=== PATIENT | female | born 1985 | race American Indian/Alaskan Native ===

== ENCOUNTER 2017-07-26 07:07 | Emergency (ER) | payer BC ==
[2017-07-26] MEDS ORDERED: ZOFRAN ODT PO ONE (07:58)
[2017-07-26] MEDS ORDERED: PERCOCET 5/325 PO ONE (07:58)
--- NOTE | 2017-07-26 08:40 | XRay Report ---
FINAL REPORT EXAM: XR KNEE 4+V RT HISTORY: severe knee pain, swelling, do sunrise view please COMPARISONS: None. FINDINGS: AP, lateral, sunrise and oblique views of the both knees Alignment is anatomic, joint spaces are preserved, and subchondral surfaces are smooth. No fracture or joint effusion seen involving either knee. IMPRESSION: No acute finding in either knee. Consider additional imaging for worsening/persistent symptoms.
[2017-07-26 08:48] LABS: Basophils % (Auto) 0.6 % (0.0-1.8); Eosinophils % (Auto) 1.2 % (0.0-4.3); Hematocrit 36.2 % (30.3-42.9); Hemoglobin 12.3 gm/dl (10.1-14.3); Mean Corpuscular HGB Conc 34 % (30-34); Mean Corpuscular Hemoglobin 30 pg (28-32); Mean Corpuscular Volume 89 fl (79-97); Platelet Count 232 K/mm3 (140-440); Red Blood Count 4.05 M/mm3 (3.65-5.03); Red Cell Distribution Width 13.6 % (13.2-15.2); White Blood Count 3.9 K/mm3 (4.5-11.0)
[2017-07-26 09:01] LABS: Anion Gap 13 mmol/L; Blood Urea Nitrogen 10 mg/dL (7-17); Calcium 8.6 mg/dL (8.4-10.2); Carbon Dioxide 27 mmol/L (22-30); Creatine Kinase 101 units/L (30-135); Glucose 89 mg/dL (65-100); Potassium 4.4 mmol/L (3.6-5.0); Sodium 140 mmol/L (137-145)
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
[2017-07-26 12:35] VITALS: BP 132/76
--- NOTE | 2017-07-29 15:56 | Vascular Lab Report ---
Right Lower Extremity Venous Duplex Study: Reason for Exam: swelling of the right lower extremity. Comments on the Right: All veins visualized are freely compressible without evidence of internal echogenicity. Flow is spontaneous and phasic throughout. No evidence of acute or chronic thrombus is seen in any of the vessels visualized. Comments on the Left: A limited duplex study was done of the proximal veins of the left lower extremity. All veins visualized are freely compressible without evidence of internal echogenicity. Flow is spontaneous and phasic throughout. No evidence of acute or chronic thrombus is seen in any of the vessels visualized. Impression: No evidence of acute or chronic deep venous thrombosis in the right lower extremity.
== END 2017-07-26 12:43 | disposition home or self-care (01) ==
LOC: ED 07:07
DX: M25.561 Pain in right knee (principal); M79.604 Pain in right leg; V89.2XXA Person injured in unspecified motor-vehicle accident, traffic, initial encounter; Y92.488 Other paved roadways as the place of occurrence of the external cause; Y93.89 Activity, other specified; Y99.8 Other external cause status
CPT/HCPCS: 36415; 80048; 82550; 85025; Q0162

== ENCOUNTER 2018-07-15 00:10 | Emergency (ER) | payer BC | END 2018-07-15 01:00 | disposition left against medical advice (07) | LOC: ED 00:10 | DX: R07.9 Chest pain, unspecified (principal); R51 Headache; Z53.21 Procedure and treatment not carried out due to patient leaving prior to being seen by health care provider | CPT/HCPCS: 93005; 93010 ==

== ENCOUNTER 2019-04-15 17:23 | Emergency (ER) | payer BC, OTHER ==
[2019-04-15 18:01] VITALS: BP 117/63
== END 2019-04-15 20:34 | disposition left against medical advice (07) ==
LOC: ED 17:23
DX: M79.10 Myalgia, unspecified site (principal)
CPT/HCPCS: 99282